=== PATIENT | female | born 2000 | race Caucasian/White ===

== ENCOUNTER 2020-10-13 18:29 | Inpatient (IN) | payer MEDICAID, OTHER ==
--- NOTE | 2020-10-13 18:50 | ED ---
General Adult HPI - General Chief complaint: Psychiatric Symptoms Stated complaint: Mental Health Time Seen by Provider: 10/13/20 18:37 Source: patient, EMS Mode of arrival: EMS Limitations: no limitations - History of Present Illness Initial comments: Patient presents the ED by ambulance for evaluation. Patient states that she has been having auditory and visual hallucinations ever since she broke up with her boyfriend about 15 days ago. Patient states that schizophrenia runs in her family, and she wishes to be evaluated for schizophrenia. Patient also states that she has "anger issues", and she states that she punched a wall with her right hand 4 days ago out of frustration. Patient claims that she had right hand x-rays taken at that time, he states that she was told that she broke a bone in her right hand. Patient denies any other trauma or injury. Patient admits to occasional marijuana use. Patient denies any other illicit drug use. Patient also admits to occasional alcohol use. Patient denies any alcohol or illicit drug use today. Patient denies suicidal or homicidal ideations. Patient denies fever or chills, headache, focal neuro deficit, chest pain, dyspnea, dizziness, abdominal pain, nausea or vomiting, or any other symptoms or complaints. - Related Data Home Medications Medication Instructions Recorded Confirmed Albuterol Sulfate [Proair Hfa] 1 - 2 puff INHALATION RT-Q6H PRN 10/13/20 10/13/20 Aripiprazole Lauroxil [Aristada] 882 mg IM Q42D 10/13/20 10/13/20 Naproxen 500 mg PO Q12H PRN 10/13/20 10/13/20 Phentermine HCl [Adipex-P] 37.5 mg PO DAILY 10/13/20 10/13/20 hydrOXYzine pamoate [Vistaril] 25 mg PO TID PRN 10/13/20 10/13/20 medroxyPROGESTERone [Depo-Provera] 150 mg IM Q90D 10/13/20 10/13/20 Allergies Allergy/AdvReac Type Severity Reaction Status Date / Time No Known Allergies Allergy Verified 10/13/20 19:25 Review of Systems ROS Statement: Those systems with pertinent positive or pertinent negative responses have been documented in the HPI. ROS Other: All systems not noted in ROS Statement are negative. Past Medical History Past Medical History: No Reported History Additional Past Medical History / Comment(s): developmentally delayed History of Any Multi-Drug Resistant Organisms: None Reported Additional Past Surgical History / Comment(s): thumb surgery Past Psychological History: Anxiety, Depression, PTSD Smoking Status: Current every day smoker Past Alcohol Use History: Daily Past Drug Use History: Marijuana General Exam Limitations: no limitations General appearance: alert, in no apparent distress Head exam: Present: atraumatic, normocephalic Eye exam: Present: normal appearance, PERRL, EOMI ENT exam: Present: mucous membranes moist Neck exam: Present: other (trachea is in midline). Absent: tenderness, meningismus Respiratory exam: Present: normal lung sounds bilaterally. Absent: respiratory distress, wheezes, rales, rhonchi, stridor Cardiovascular Exam: Present: regular rate, normal rhythm, normal heart sounds, other (normal radial pulses bilaterally) GI/Abdominal exam: Present: soft. Absent: distended, tenderness, guarding Extremities exam: Present: other (swelling, ecchymosis and tenderness is noted over right third, fourth and fifth MCP joints) Back exam: Absent: tenderness Neurological exam: Present: alert, oriented X3, CN II-XII intact. Absent: motor sensory deficit Psychiatric exam: Present: anxious Skin exam: Present: warm, dry, intact Course Vital Signs 10/13/20 18:42 Temperature 98.8 F Pulse Rate 120 H Respiratory 18 Rate Blood Pressure 114/80 O2 Sat by Pulse 99 Oximetry Procedures - Orthopedic Splinting/Casting Injury #1 Side: right Upper Extremity Injury Location: hand Upper Extremity Immobilizer: ulnar gutter, synthetic pre-padded splint Medical Decision Making - Medical Decision Making Patient was evaluated by EPS nurse in the ED. She states the patient will be voluntarily admitted to our psychiatric unit here. Patient has been alert and cooperative while in the ED. Patient is not suicidal or homicidal. A right hand ulnar gutter splint was placed in the ED myself secondary to the patient having a right fifth metacarpal fracture on x-ray. - Lab Data Lab Results 10/13/20 10/13/20 10/13/20 Range/Units 19:24 19:24 20:05 Urine HCG, Qual Not Detected (Not Detectd) Urine Opiates Screen Not Detected (NotDetected) Ur Oxycodone Screen Not Detected (NotDetected) Urine Methadone Screen Not Detected (NotDetected) Ur Propoxyphene Screen Not Detected (NotDetected) Ur Barbiturates Screen Not Detected (NotDetected) U Tricyclic Antidepress Not Detected (NotDetected) Ur Phencyclidine Scrn Not Detected (NotDetected) Ur Amphetamines Screen Not Detected (NotDetected) U Methamphetamines Scrn Not Detected (NotDetected) U Benzodiazepines Scrn Not Detected (NotDetected) Urine Cocaine Screen Not Detected (NotDetected) U Marijuana (THC) Screen Detected H (NotDetected) Coronavirus (PCR) Not Detected (Not Detectd) - Radiology Data Radiology results: report reviewed (right hand x-rays: nondisplaced acute fracture distal shaft fifth metacarpal with also probably pre-existing old healed fracture) Disposition Clinical Impression: Hallucinations, Marijuana abuse, Fracture of fifth metacarpal bone of right hand Disposition: ADMITTED IP TO THIS [facility] Condition: Stable Is patient prescribed a controlled substance at d/c from ED?: No Referrals: Kolton Vallejo MD [Primary Care Provider] - 1-2 days Time of Disposition: 20:32
[2020-10-13 19:51] LABS: Amphetamine Screen,Urine Not Detected (NotDetected); Barbiturate Screen,Urine Not Detected (NotDetected); Benzodiazepines Screen,Urine Not Detected (NotDetected); Cocaine Screen,Urine Not Detected (NotDetected); Methadone Screen, Urine Not Detected (NotDetected); Opiate Screen,Urine Not Detected (NotDetected); Oxycodone Screen, Urine Not Detected (NotDetected); Phencyclidine Screen,Urine Not Detected (NotDetected); Tricyclic Antidepressant,Urine Not Detected (NotDetected); Urn Cannabinoid Scrn Detected (NotDetected)
--- NOTE | 2020-10-13 20:03 | XR ---
EXAMINATION TYPE: XR hand complete RT DATE OF EXAM: 10/13/2020 COMPARISON: NONE HISTORY: Pain. Punched a wall. TECHNIQUE: 3 views FINDINGS: There is nondisplaced oblique fracture of the distal shaft of the fifth metacarpal. There i s also some deformity probably due to an old healed fracture. The fingers appear intact. IMPRESSION: Nondisplaced acute fracture distal shaft fifth metacarpal with also probably pre-existing old healed fracture.
[2020-10-13] MEDS ORDERED: MAG HYDROX/AL HYDROX/SIMETH 30 ML CUP PO PRN (22:07)
[2020-10-13] MEDS ORDERED: MAGNESIUM HYDROXIDE 2,400 MG/10 ML CUP PO PRN (22:07)
[2020-10-13] MEDS ORDERED: HALOPERIDOL LACTATE 5 MG/ML 1 ML VIAL IM PRN (22:08)
[2020-10-13] MEDS ORDERED: haloperidoL 1 MG TAB PO PRN (22:08)
[2020-10-13] MEDS ORDERED: ACETAMINOPHEN TAB 325 MG TAB PO PRN (22:30)
[2020-10-13] MEDS ORDERED: NAPROXEN 250 MG TAB PO PRN (22:30)
[2020-10-13] MEDS ORDERED: ALBUTEROL HFA INHALER INHALATION PRN (22:30)
[2020-10-14] MEDS: NON FORMULARY DRUG (Phentermine Hcl [Adipex-P] 37.5 MG Tablet) PO SCH (08:59)
[2020-10-14] MEDS ORDERED: FLUoxetine HCL 20 MG CAP PO STA (10:23)
--- NOTE | 2020-10-14 10:45 | P.HP ---
Psychiatric H&P - . H&P Date: 10/14/20 History & Physical: Allergies Allergy/AdvReac Type Severity Reaction Status Date / Time No Known Allergies Allergy Verified 10/14/20 00:23 Vital Signs Temp 98.5 F 10/13/20 22:20 Pulse 107 H 10/13/20 22:20 Resp 18 10/13/20 22:20 BP 114/70 10/13/20 22:20 Pulse Ox 98 10/13/20 22:20 Intake & Output 10/13/20 10/14/20 10/14/20 18:59 06:59 18:59 Weight 83.915 kg 83.915 kg Laboratory Last Values Urine HCG, Qual Not Detected (Not Detectd) 10/13/20 19:24 Urine Opiates Screen Not Detected (NotDetected) 10/13/20 19:24 Ur Oxycodone Screen Not Detected (NotDetected) 10/13/20 19:24 Urine Methadone Screen Not Detected (NotDetected) 10/13/20 19:24 Ur Propoxyphene Screen Not Detected (NotDetected) 10/13/20 19:24 Ur Barbiturates Screen Not Detected (NotDetected) 10/13/20 19:24 U Tricyclic Antidepress Not Detected (NotDetected) 10/13/20 19:24 Ur Phencyclidine Scrn Not Detected (NotDetected) 10/13/20 19:24 Ur Amphetamines Screen Not Detected (NotDetected) 10/13/20 19:24 U Methamphetamines Scrn Not Detected (NotDetected) 10/13/20 19:24 U Benzodiazepines Scrn Not Detected (NotDetected) 10/13/20 19:24 Urine Cocaine Screen Not Detected (NotDetected) 10/13/20 19:24 U Marijuana (THC) Screen Detected (NotDetected) H 10/13/20 19:24 Coronavirus (PCR) Not Detected (Not Detectd) 10/13/20 20:05 10/14/20 10:33 IDENTIFYING DATA: Patient is a single, unemployed, 20-year-old female who presented with auditory and visual hallucinations. HPI: Patient presented to the hospital on 10/13/2020 via ambulance for evaluation of auditory and visual hallucinations. The patient states that she wishes to be evaluated for schizophrenia. The patient reports that she has began experiencing bizarre and scary hallucinations that occur primarily between the hours of 3 AM and 6 AM. She states that this has been occurring for the last 16 days. She describes seeing shadows, hearing voices, as well as episodes where she is unable to move. This appears to align with her bedtime at 3 AM and her wake time of 6 AM. She reports other stressors that has been causing her significant distress. She states that she recently lost her mom this past April. Furthermore an ex-boyfriend also in 2019 and her father from cancer in 2019. The patient does express excessive amounts of guilt stating "I feel like it is my fault unless my mom, dad, and ex-boyfriend." She does identify periods of mood dysregulation and states that she hurt her wrist punching a wall 5 days ago. She reports elevated anger and mood swings. She also endorses anhedonia. She denies any suicidal or homicidal ideation, intention, and/or plan. She reports no prior attempts at suicide. Aside from these hallucinations, the patient is denying any paranoia. She does report that she feels like at times she is able to read other peoples minds. She denies any other delusional thought content. The patient does not endorse any flight of ideas, racing thoughts, or increased goal-directed behavior. The patient does report that she smokes one pack per day of cigarettes. She reports trying alcohol on occasion. She reports frequent marijuana use. She has previous experimented with mildly, DMT, and cocaine with the last use of these type of drugs in 2019. PAST PSYCHIATRIC HISTORY: Patient states that she has been treated for "anger." She has reported diagnoses of anxiety, depression, and PTSD. She is currently prescribed Abilify Aristada but is uncertain as to when she received her last dose. She is also prescribed Vistaril. She is receiving phentermine through her primary care provider for weight loss. She reports going to "[facility] for rehab" in 2019. She states she went because she was using DMT and charles at the time. Patient reports that she follows with [facility]. Patient denies any history of suicide attempts in the past. PMH: No reported medical history ALLERGIES: NO KNOWN DRUG ALLERGIES CHEMICAL DEPENDENCY HISTORY: 1 PPD tobacco. ETOH on occasion. She reports freq uent marijuana use. She has previous experimented with mildly, DMT, and cocaine with the last use of these type of drugs in 2019. FAMILY PSYCHIATRIC/SUBSTANCE USE HISTORY: The patient reports that her brother is diagnosed bipolar disorder and her sister's diagnosed with schizophrenia. SOCIAL HISTORY: Patient was born in [place], [place]. She is currently staying in [place], [place]. She is currently unemployed but reports that she is attempting to apply for SSI. She is single and has no children. She reports a 12th grade education. She states that she has a boyfriend in [place] was pl anning to move up to [place] and her grandmother. MENTAL STATUS EXAM: General Appearance: Patient appears to be stated age is alert, directable, and attempts to cooperate. Patient has a YO wrap and splint over her right wrist. Behavior: Patient is seated without any agitated behavior. Psychomotor activity appears normal. Speech: Patient's speech is fluent and nonpressured. Normal rate, tone, volume, and fluency. Mood/Affect: Patient reports their mood is scared, affect is euthymic with appropriate range. Suicidality/Homicidality: Patient denies having any homicidal ideation intent or plan. Denies any suicidal ideations intent or plan Perceptions: Patient denies any visual hallucinations and denies any auditory hallucinations Though content/process: There is no evidence of any delusional thought content and thought process is linear and goal-directed. Memory and concentration: AOX3, grossly intact for the purposes of this session. Can spell "WORLD" backwards Judgment and insight: poor STRENGTHS/WEAKNESSES: Strength is that patient is resilient and open with outpatient services. Weakness is that patient has poor judgment. INTELLECT: average to below average IMPRESSIONS: Major depressive disorder Bereavement Rule out narcolepsy/Sleep paralysis Cannabis Use Disorder Nicotine Dependence PLAN: -Patient is admitted under voluntary status to MHU for stabilization of ps ychiatric symptoms and safety. Patient signed adult voluntary form and medication consent and is placed in patient's chart. -Medications : Will start patient on Prozac 20 mg by mouth daily for depression/anxiety Will need to confirm when abilify aristada was last administered. -Haldol PRN for agitation/aggression -Patient was counselled on substance abuse and desired to cut back on use -Patient was informed of the risks, benefits and side effects of the medication and patient verbally consented to taking the medications. Patient signed med consent form and was placed in chart. -Internal Medicine consult to perform medical evaluation and physical. -NRT - nicotine patch -SW on board for discharge planning. Encourage patient to participate in groups to work on coping skills. 10/14/20 10:36 10/14/20 11:07
--- NOTE | 2020-10-14 23:40 | P.CONS ---
History of Present Illness - History of Present Illness This is a pleasant 20 years old female who was admitted to the mental health unit for signs and symptoms of major depressive disorder. Medical consult was requested for routine medical evaluation Patient is understandably, she denies any specific symptoms, no chest pain or dy spnea. No abdominal pain. No nausea vomiting. No change in urine or bowel habits. No fever. She smokes 1 pack per day, and no alcohol but she smokes marijuana, patient is counseled and agrees to quit Also patient was feeling angry and she punched a wall couple times nocturia to this admission and right hand x-ray showing nondisplaced acute fracture of the distal shaft of the fifth metacarpal bone with also probably preexistent old healed fracture, currently her hand is in partial and slab. I offered to do a serum test for the patient and she agrees Review of Systems CONSTITUTIONAL: No fever, no malaise, no fatigue. HEENT: No recent visual problems or hearing problems. Denied any sore throat. CARDIOVASCULAR: No orthopnea, PND, no palpitations, no syncope. PULMONARY: No shortness of breath, no cough, no hemoptysis. GASTROINTESTINAL: No diarrhea, no nausea, no vomiting, no abdominal pain. Normoactive bowel sounds. NEUROLOGICAL: No headaches, no weakness, no numbness. HEMATOLOGICAL: Denies any bleeding or petechiae. GENITOURINARY: Denies any burning micturition, frequency, or urgency. MUSCULOSKELETAL/RHEUMATOLOGICAL: Denies any joint pain, swelling, or any muscle pain. ENDOCRINE: Denies any polyuria or polydipsia. Past Medical History Past Medical History: Diabetes Mellitus Additional Past Medical History / Comment(s): developmentally delayed 3rd grade level, narcolepsy, right 5th metacarpal fx, History of Any Multi-Drug Resistant Organisms: None Reported Additional Past Surgical History / Comment(s): thumb surgery Past Anesthesia/Blood Transfusion Reactions: No Reported Reaction Past Psychological History: Anxiety, Depression, PTSD Additional Psychological History / Comment(s): anger management issues Smoking Status: Current every day smoker, Vaper Past Alcohol Use History: Occasional Additional Past Alcohol Use History / Comment(s): Patient reports only drinking occasionally, but when she does, drinks until she passes out. Past Drug Use History: Marijuana - Past Family History Mother Additional Family Medical History / Comment(s): Schizophrenia Medications and Allergies Home Medications Medication Instructions Recorded Confirmed Type Albuterol Sulfate [Proair Hfa] 1 - 2 puff INHALATION RT-Q6H PRN 10/13/20 10/14/20 History Aripiprazole Lauroxil [Aristada] 882 mg IM Q42D 10/13/20 10/14/20 History Naproxen 500 mg PO Q12H PRN 10/13/20 10/14/20 History Phentermine HCl [Adipex-P] 37.5 mg PO DAILY 10/13/20 10/14/20 History hydrOXYzine pamoate [Vistaril] 25 mg PO TID PRN 10/13/20 10/14/20 History medroxyPROGESTERone [Depo-Provera] 150 mg IM Q90D 10/13/20 10/14/20 History Allergies Allergy/AdvReac Type Severity Reaction Status Date / Time No Known Allergies Allergy Verified 10/14/20 00:23 Physical Exam Vitals: Vital Signs Temp Pulse Resp BP Pulse Ox 10/13/20 22:20 98.5 F 107 H 18 114/70 98 GENERAL: The patient is alert and oriented x3, not in any acute distress. Well developed, well nourished. HEENT: Pupils are round and equally reacting to light. EOMI. No scleral icterus. No conjunctival pallor. Normocephalic, atraumatic. No pharyngeal erythema. No thyromegaly. CARDIOVASCULAR: S1 and S2 present. No murmurs, rubs, or gallops. PULMONARY: Chest is clear to auscultation, no wheezing or crackles. ABDOMEN: Soft, nontender, nondistended, normoactive bowel sounds. No palpable organomegaly. MUSCULOSKELETAL: No joint swelling or deformity. -EXTREMITIES: No cyanosis, clubbing, or pedal edema. Right hand in partial slab NEUROLOGICAL: Gross neurological examination did not reveal any focal deficits. SKIN: No rashes. No petechiae Assessment and Plan Assessment: -Depression, and other signs symptoms, management as per psych primary team -Displaced acute fracture of the fifth metacarpal bone of the right hand, consult orthopedic team -Nicotine dependence and patient counseled to quit and she agrees -Substance abuse with cannabis -Obesity with BMI of 33.8 DVT prophylaxis: Patient is mobile and low risk We recommend patient to follow-up with her primary care doctor Yoni in one week and she was instructed with the same Thank you for consulting us please feel free to contact us for any further questions, we will see the patient on as needed basis
[2020-10-15] MEDS: NON FORMULARY DRUG (Phentermine Hcl [Adipex-P] 37.5 MG Tablet) PO SCH (08:41)
[2020-10-15] MEDS ORDERED: FLUoxetine HCL 20 MG CAP PO SCH (09:00)
[2020-10-15] MEDS: NICOTINE 14MG/24HR PATCH TRANSDERM SCH (09:20)
[2020-10-15] MEDS ORDERED: FLUoxetine HCL 20 MG CAP PO STA (09:53)
[2020-10-15] MEDS: hydrOXYzine pamoate 25 MG CAP PO PRN ×2 (11:59→18:20)
--- NOTE | 2020-10-15 12:00 | P.PN ---
Progress Note - Text Progress Note Date: 10/15/20 Interval History: Patient was seen attending group and was directable and agreeable to speak with newspaper writer in the office. Patient reports that she is feeling slightly better today. She reports that she was able to sleep well last night and was also sleeping throughout the day. The patient expresses that this is likely her catching up on all the sleep that she did not receive before. She does report that she had an episode of irritability but states that this was minor and was able to stop herself from being to Haldol. The patient is not reporting any suicidal or homicidal ideation, intention, and/or plan. She is not reporting any auditory or visualizations. She is denying any paranoia or delusions at this time. She has been adherent with her medications and is not reporting any significant side effects. Mental Status Exam: General Appearance: Patient appears to be stated age is alert, directable, and cooperative. Patient has an Sincere wrap and splint over her right wrist. Behavior: Patient is calmly seated without any agitated behavior. Eye contact is appropriate. Psychomotor activity is normal. Speech: Patient's speech is fluent and nonpressured. Each is with normal rate, tone, volume and fluency. Mood/Affect: Mood is improving mildly, affect is congruent and constricted. Suicidality/Homicidality: Patient denies having any suicidal or homicidal ideation intent or plan. Perceptions: Patient denies any visual hallucinations and denies any auditory hallucinations Though content/process: There is no evidence of any delusional thought content and thought process is linear and goal-directed. Memory and concentration: AOX3, grossly intact for the purposes of this session Judgment and insight: Improving mildly Assessment Major depressive disorder Bereavement Rule out narcolepsy/Sleep paralysis Cannabis Use Disorder Nicotine Dependence Plan: -Patient continues to meet criteria for inpatient psychiatric admission for symptom stabilization and safety. Patient has signed adult voluntary form and medication consent and was placed in patient's chart. -Medications: Increase Prozac to 40 mg by mouth daily for depression/anxiety The patient is to continue Abilify Aristada in the outpatient setting. -Haldol when necessary for agitation/aggression -NRT - nicotine patch -SW on board for discharge planning. Encouraged the patient to participate in milieu.
--- NOTE | 2020-10-15 15:22 | P.CNOR ---
History of Present Illness - [facility] Consult date: 10/15/20 Consult reason: fracture History of present illness: Patient is seen in the unit this afternoon in consultation for right hand pain and fracture. She states that she was angry at her sister 4 days ago when she punched a wall and injured her right hand. She was placed in a splint yesterday in the ED. She continues to have pain and swelling at the right hand. She denies numbness or elbow pain. Review of Systems All systems: negative Constitutional: Denies chills, Denies fever Eyes: denies blurred vision, denies pain Ears, nose, mouth and throat: Denies headache, Denies sore throat Cardiovascular: Denies chest pain, Denies shortness of breath Respiratory: Denies cough Gastrointestinal: Denies abdominal pain, Denies diarrhea, Denies nausea, Denies vomiting Genitourinary: Denies dysuria, Denies hematuria Musculoskeletal: Denies myalgias Integumentary: Denies pruritus, Denies rash Neurological: Denies numbness, Denies weakness Psychiatric: Denies anxiety, Denies depression Endocrine: Denies fatigue, Denies weight change Past Medical History Past Medical History: Diabetes Mellitus Additional Past Medical History / Comment(s): developmentally delayed 3rd grade level, narcolepsy, right 5th metacarpal fx, History of Any Multi-Drug Resistant Organisms: None Reported Additional Past Surgical History / Comment(s): thumb surgery Past Anesthesia/Blood Transfusion Reactions: No Reported Reaction Past Psychological History: Anxiety, Depression, PTSD Additional Psychological History / Comment(s): anger management issues Smoking Status: Current every day smoker, Vaper Past Alcohol Use History: Occasional Additional Past Alcohol Use History / Comment(s): Patient reports only drinking occasionally, but when she does, drinks until she passes out. Past Drug Use History: Marijuana - Past Family History Mother Additional Family Medical History / Comment(s): Schizophrenia Medications and Allergies Home Medications Medication Instructions Recorded Confirmed Type Albuterol Sulfate [Proair Hfa] 1 - 2 puff INHALATION RT-Q6H PRN 10/13/20 10/14/20 History Aripiprazole Lauroxil [Aristada] 882 mg IM Q42D 10/13/20 10/14/20 History Phentermine HCl [Adipex-P] 37.5 mg PO DAILY 10/13/20 10/14/20 History RX: Naproxen 500 mg PO Q12H PRN 10/13/20 10/14/20 History hydrOXYzine pamoate [Vistaril] 25 mg PO TID PRN 10/13/20 10/14/20 History medroxyPROGESTERone [Depo-Provera] 150 mg IM Q90D 10/13/20 10/14/20 History Allergies Allergy/AdvReac Type Severity Reaction Status Date / Time No Known Allergies Allergy Verified 10/14/20 00:23 Physical Examination On exam, skin is intact. Tender over the fifth metacarpal neck to palpation. mild swelling and ecchymosis in this area. No angular or rotational deformity. Normal flexion cascade. There is an intact EPL, FPL, extensor indicis, hand intrinsics and the FDP to the small finger. Intact radial, median and ulnar nerve sensations as well as 2+ radial pulse and brisk capillary refill distally. minimally scissoring Results xrays 10/14/20 of right hand show minimally displaced 5th metacarpal head fracture - Diagnostic results Wrist/Hand x-ray: report reviewed, image reviewed Assessment and Plan (1) Fracture of fifth metacarpal bone of right hand Narrative/Plan: We will request a boxer's fracture brace be obtained for her to wear. I advised to ice and elevate and restrictions. Pain meds and NSAIDs per primary team. She may follow up as an outpatient in one week. Current Visit: Yes Status: Acute Priority: Medium Code(s): S62.306A - UNSP FRACTURE OF FIFTH METACARPAL BONE, RIGHT HAND, INIT SNOMED Code(s): 304477804 Time with Patient: Less than 30
[2020-10-15 18:48] LABS: Appearance,Urine Cloudy (Clear); Bacteria,Urine Rare /hpf; Bilirubin,Urine Negative (Negative); Blood,Urine Negative (Negative); Color,Urine Yellow; Glucose,Urine (UA) Negative (Negative); Hyaline Casts,Urine 3 /lpf (0-2); Ketones,Urine Negative (Negative); Leukocyte Esterase,Urine Large (Negative); Mucus,Urine Occasional /hpf; Nitrite,Urine Negative (Negative); PH, Urine 6.5 (5.0-8.0); Protein,Urine Trace (Negative); RBC,Urine 5 /hpf (0-5); Specific Gravity,Urine 1.022 (1.001-1.035); Squamous Epithelial Cell,Urine 1 /hpf (0-4); Urobilinogen,Urine <2.0 mg/dL (<2.0); WBC,Urine 106 /hpf (0-5)
[2020-10-16 04:43] VITALS: BP 120/65; PULSE 106; RESP 18
[2020-10-16] MEDS: hydrOXYzine pamoate 25 MG CAP PO PRN (04:47)
[2020-10-16] MEDS: NICOTINE 14MG/24HR PATCH TRANSDERM SCH (07:57)
[2020-10-16] MEDS: NON FORMULARY DRUG (Phentermine Hcl [Adipex-P] 37.5 MG Tablet) PO SCH (08:44)
[2020-10-16] MEDS ORDERED: FLUoxetine HCL 20 MG CAP PO SCH (09:00)
--- NOTE | 2020-10-16 10:13 | P.DS ---
Providers Date of admission: 10/13/20 21:55 Expected date of discharge: 10/16/20 Attending physician: Keny Eid MD Consults: 10/13/20 22:07 Consult Physician Routine Consulting Provider: Amador Lovell Consult Reason/Comments: H&P and medical Do you want consulting provider notified?: Yes 10/14/20 20:03 Consult Physician Urgent Consulting Provider: Hector Genao Consult Reason/Comments: hand fracture Do you want consulting provider notified?: Yes Primary care physician: Kolton Vallejo - Discharge Diagnosis(es) (1) Major depressive disorder Current Visit: Yes Status: Acute Priority: High (2) Bereavement Current Visit: Yes Status: Acute Priority: High (3) Nicotine dependence Current Visit: Yes Status: Chronic Priority: Medium (4) Marijuana abuse Current Visit: Yes Status: Chronic Priority: Medium Hospital Course: Admission HPI: Patient is a single, unemployed, 20-year-old female who presented with auditory and visual hallucinations. Patient presented to the hospital on 10/13/2020 via ambulance for evaluation of auditory and visual hallucinations. The patient states that she wishes to be evaluated for schizophrenia. The patient reports that she has began experiencing bizarre and scary hallucinations that occur primarily between the hours of 3 AM and 6 AM. She states that this has been occurring for the last 16 days. She describes seeing shadows, hearing voices, as well as episodes where she is unable to move. This appears to align with her bedtime at 3 AM and her wake time of 6 AM. She reports other stressors that has been causing her significant distress. She states that she recently lost her mom this past April. Furthermore an ex-boyfriend also in 2019 and her father from cancer in 2018. The patient does express excessive amounts of guilt stating "I feel like it is my fault unless my mom, dad, and ex-boyfriend." She does identify periods of mood dysregulation and states that she hurt her wrist punching a wall 5 days ago. She reports elevated anger and mood swings. She also endorses anhedonia. She denies any suicidal or homicidal ideation, intention, and/or plan. She reports no prior attempts at suicide. Aside from these hallucinations, the patient is denying any paranoia. She does report that she feels like at times she is able to read other peoples minds. She denies any other delusional thought content. The patient does not endorse any flight of ideas, racing thoughts, or increased goal-directed behavior. The patient does report that she smokes one pack per day of cigarettes. She reports trying alcohol on occasion. She reports frequent marijuana use. She has previous experimented with mildly, DMT, and cocaine with the last use of these type of drugs in 2019. Hospital course: Upon admission to the unit patient was initially presenting is frightened and worried. Patient was however directable and agreeable to commence treatment. After obtaining the patient's history, it is likely that the patient was experiencing sleep paralysis that she endorsed hypnagogic and hypnopompic hallucinations. The patient was started on Prozac to address depression/anxiety that she has been experiencing. The patient was also evaluated by the medical team and orthopedics due to a broken metacarpal bone which she broke punching a wall prior to this mission. Over the course of the hospitalization, the patient gradually improved in terms of her sleep, mood, and hallucinations. The patient attended group with high participation engaged in milieu activities. On the day of discharge, the patient is not reporting any suicidal or homicidal ideation, intention, and/or plan. She is not reporting any access to firearms or weapons. She is not reporting any auditory or visual hallucinations. She is not reporting any paranoia or other delusions. The patient does have a significant history of substance abuse including experimentation with multiple drugs in the past, and current marijuana and tobacco use however was counseled on abstaining from all these substances. The patient was also counseled on her medications and need for regular compliance and was encouraged to follow-up with her outpatient appointments for mental health and for primary care. Prior to discharge, a family meeting will be arranged by hospice social worker to answer any questions. Mental status exam: General Appearance: Patient appears to be stated age is alert, pleasant, and cooperative. Patient is in no acute distress and has fair hygiene and grooming Behavior: Patient is calmly seated without any agitated behavior. Psychomotor activity appears normal. Speech: Patient's speech is fluent and nonpressured. The patient's speech is spontaneous, with normal rate, tone, volume, and fluency. Mood/Affect: Patient reports their mood is "much better", affect is congruent and euthymic to bright. Suicidality/Homicidality: Patient denies having any suicidal or homicidal ideation intent or plan. Perceptions: Patient denies any auditory or visual hallucinations. Though content/process: There is no evidence of any delusional thought content and thought process is linear and goal-directed. [ Memory and concentration: AOX3, grossly intact for the purposes of this session. Can spell "WORLD" backwards correctly. Judgment and insight: Improved Impression: Major depressive disorder Bereavement Rule out narcolepsy/Sleep paralysis Cannabis Use Disorder Nicotine Dependence Plan: -Continue with discharge today as patient has improved and stabilized psychiatrically and is not currently an imminent threat to himself and/or others. Patient will remain at chronically elevated risk for harm to self and/or others due to her poor coping skills and substance use -Continue medications: The patient will be discharged with Prozac 40 mg by mouth daily and nicotine replacement therapy patches -Patient was counseled on the need for medication compliance and appropriate follow-up at mental health and also primary care for medical issues. Patient verbalized understanding and agreed. -Social work to arrange for and conduct family meeting to ensure safety upon discharge and answer any questions/concerns. Social work also to arrange for patients follow up appointments for psychiatric care along with follow up with primary care provider. -Patient counseled on abstaining from recreational drugs and marijuana and alcohol. Was informed/educated on the adverse effects on their physical and mental health. Patient verbally agreed and understood. -Patient was instructed to return to the hospital or seek immediate medical care if their psychiatric or medical symptoms do worsen or reoccur. -Psychoeducation and supportive therapy provided to patient. Risks and benefits of pharmacological treatment versus the risks and benefits of nontreatment weight and discussed. Informed consent discussion held. Common side effects of psychotropics discussed such as, but not limited to headache, GI disturbance, sexual dysfunction, movement disorders, sedation, and orthostatic hypotension. Life threatening and blackbox warnings of prescribed medications also discussed. Potential risks of operating a vehicle or heavy machinery discussed with patient at length. Advised on importance of compliance and a reliable and responsible manner. Patient advised to review FDA consumer labeling of all medications prior to taking. Patient verbalized understanding of potential risks, and agrees with current treatment plan. Patient advised to medically contact physician/emergency personnel if any acute changes in condition occur. Vital Signs Temp 97.4 F L 10/16/20 04:42 Pulse 106 H 10/16/20 04:42 Resp 18 10/16/20 04:42 BP 120/65 10/16/20 04:42 Pulse Ox 98 10/13/20 22:20 Laboratory Results HCG, Qual Not Detected 10/15/20 06:36 Urine Color Yellow 10/15/20 Unknown Urine Appearance Cloudy (Clear) H 10/15/20 Unknown Urine pH 6.5 (5.0-8.0) 10/15/20 Unknown Ur Specific [place] 1.022 (1.001-1.035) 10/15/20 Unknown Urine Protein Trace (Negative) H 10/15/20 Unknown Urine Glucose (UA) Negative (Negative) 10/15/20 Unknown Urine Ketones Negative (Negative) 10/15/20 Unknown Urine Blood Negative (Negative) 10/15/20 Unknown Urine Nitrite Negative (Negative) 10/15/20 Unknown Urine Bilirubin Negative (Negative) 10/15/20 Unknown Urine Urobilinogen <2.0 mg/dL (<2.0) 10/15/20 Unknown Ur Leukocyte Esterase Large (Negative) H 10/15/20 Unknown Urine RBC 5 /hpf (0-5) 10/15/20 Unknown Urine WBC 106 /hpf (0-5) H 10/15/20 Unknown Ur Squamous Epith Cells 1 /hpf (0-4) 10/15/20 Unknown Urine Bacteria Rare /hpf (None) H 10/15/20 Unknown Hyaline Casts 3 /lpf (0-2) H 10/15/20 Unknown Urine Mucus Occasional /hpf (None) H 10/15/20 Unknown Urine HCG, Qual Not Detected (Not Detectd) 10/13/20 19:24 Urine Opiates Screen Not Detected (NotDetected) 10/13/20 19:24 Ur Oxycodone Screen Not Detected (NotDetected) 10/13/20 19:24 Urine Methadone Screen Not Detected (NotDetected) 10/13/20 19:24 Ur Propoxyphene Screen Not Detected (NotDetected) 10/13/20 19:24 Ur Barbiturates Screen Not Detected (NotDetected) 10/13/20 19:24 U Tricyclic Antidepress Not Detected (NotDetected) 10/13/20 19:24 Ur Phencyclidine Scrn Not Detected (NotDetected) 10/13/20 19:24 Ur Amphetamines Screen Not Detected (NotDetected) 10/13/20 19:24 U Methamphetamines Scrn Not Detected (NotDetected) 10/13/20 19:24 U Benzodiazepines Scrn Not Detected (NotDetected) 10/13/20 19:24 Urine Cocaine Screen Not Detected (NotDetected) 10/13/20 19:24 U Marijuana (THC) Screen Detected (NotDetected) H 10/13/20 19:24 Coronavirus (PCR) Not Detected (Not Detectd) 10/13/20 20:05 Allergies Allergy/AdvReac Type Severity Reaction Status Date / Time No Known Allergies Allergy Verified 10/14/20 00:23 Patient Condition at Discharge: Stable Plan - Discharge Summary Discharge Rx Participant: No New Discharge Prescriptions: New Nicotine 14Mg/24Hr Patch [Habitrol] 1 patch TRANSDERM DAILY 30 Days patch FLUoxetine HCL [PROzac] 40 mg PO DAILY 30 Days cap Continue medroxyPROGESTERone [Depo-Provera] 150 mg IM Q90D Aripiprazole Lauroxil [Aristada] 882 mg IM Q42D Phentermine HCl [Adipex-P] 37.5 mg PO DAILY Discontinued Naproxen 500 mg PO Q12H PRN PRN Reason: Pain Albuterol Sulfate [Proair Hfa] 1 - 2 puff INHALATION RT-Q6H PRN PRN Reason: Shortness Of Breath hydrOXYzine pamoate [Vistaril] 25 mg PO TID PRN PRN Reason: Anxiety Discharge Medication List Aripiprazole Lauroxil [Aristada] 882 mg IM Q42D 10/13/20 [History] Phentermine HCl [Adipex-P] 37.5 mg PO DAILY 10/13/20 [History] medroxyPROGESTERone [Depo-Provera] 150 mg IM Q90D 10/13/20 [History] FLUoxetine HCL [PROzac] 40 mg PO DAILY 30 Days cap 10/16/20 [Rx] Nicotine 14Mg/24Hr Patch [Habitrol] 1 patch TRANSDERM DAILY 30 Days patch 10/16/20 [Rx] Follow up Appointment(s)/Referral(s): Kolton Vallejo MD [Primary Care Provider] - 1-2 days Watkins,Derek J, PAC [PHYSICIAN TRANSITION TEACHER] - 1 Week Activity/Diet/Wound Care/Special Instructions: Wear fracture brace ice and elevate F/U in office in one week Discharge Disposition: HOME SELF-CARE
[2020-10-16 13:44] VITALS: TEMP 97.1
== END 2020-10-16 14:50 | disposition home or self-care (01) | DRG 881 ==
LOC: EC 18:29 → 3MHU 21:55
PROVIDERS: ADMIT Psychiatry & Neurology Psychiatry; ATTEND Psychiatry & Neurology Psychiatry
DX: F32.9 Major depressive disorder, single episode, unspecified (principal); R44.0 Auditory hallucinations; E11.9 Type 2 diabetes mellitus without complications; G83.9 Paralytic syndrome, unspecified; Z20.822 Contact with and (suspected) exposure to COVID-19; F12.10 Cannabis abuse, uncomplicated; F17.210 Nicotine dependence, cigarettes, uncomplicated; S62.326A Displaced fracture of shaft of fifth metacarpal bone, right hand, initial encounter for closed fracture; R44.1 Visual hallucinations; R62.50 Unspecified lack of expected normal physiological development in childhood; F43.10 Post-traumatic stress disorder, unspecified; F41.9 Anxiety disorder, unspecified; G47.419 Narcolepsy without cataplexy; E66.9 Obesity, unspecified; W22.01XA Walked into wall, initial encounter; Z68.33 Body mass index [BMI] 33.0-33.9, adult; Z79.3 Long term (current) use of hormonal contraceptives; Z79.899 Other long term (current) drug therapy; Z56.0 Unemployment, unspecified; Z63.4 Disappearance and death of family member; Z71.6 Tobacco abuse counseling; Z87.81 Personal history of (healed) traumatic fracture; Z81.8 Family history of other mental and behavioral disorders
CPT/HCPCS: 29125; 80306; 81001; 81025; 82075; 84703; 87635; 99285

== ENCOUNTER 2023-09-06 21:44 | Inpatient (IN) | payer MEDICARE, OTHER ==
[2023-09-06 23:35] LABS: Cocaine Screen,Urine Not Detected (NotDetected); Phencyclidine Screen,Urine Not Detected (NotDetected); Urn Cannabinoid Scrn Detected (NotDetected)
[2023-09-06 23:36] LABS: Amphetamine Screen,Urine Not Detected (NotDetected); Barbiturate Screen,Urine Not Detected (NotDetected); Benzodiazepines Screen,Urine Not Detected (NotDetected); Methadone Screen, Urine Not Detected (NotDetected); Opiate Screen,Urine Not Detected (NotDetected); Oxycodone Screen, Urine Not Detected (NotDetected); Tricyclic Antidepressant,Urine Not Detected (NotDetected)
[2023-09-07] MEDS ORDERED: LORazepam 1 MG TAB PO PRN (01:49)
[2023-09-07] MEDS ORDERED: MAG HYDROX/AL HYDROX/SIMETH 30 ML CUP PO PRN (01:49)
[2023-09-07] MEDS ORDERED: diphenhydrAMINE 25 MG CAP PO PRN (01:49)
[2023-09-07] MEDS ORDERED: MAGNESIUM HYDROXIDE 2,400 MG/30 ML CUP PO PRN (01:49)
[2023-09-07] MEDS ORDERED: HALOPERIDOL LACTATE 5 MG/ML 1 ML VIAL IM PRN (01:49)
[2023-09-07] MEDS: IBUPROFEN 600 MG TAB PO PRN ×2 (02:41→15:00)
[2023-09-07] MEDS: LORazepam 1 MG TAB PO PRN ×2 (03:08→15:00)
--- NOTE | 2023-09-07 04:42 | P.PN ---
Progress Note - Text Progress Note Date: 09/07/23 notified of new consult, patient heavily medicated at this time
[2023-09-07 04:55] LABS: Appearance,Urine Clear (Clear); Bilirubin,Urine Negative (Negative); Blood,Urine Negative (Negative); Color,Urine Colorless; Glucose,Urine (UA) Negative (Negative); Ketones,Urine Negative (Negative); Leukocyte Esterase,Urine Negative (Negative); Nitrite,Urine Negative (Negative); PH, Urine 6.5 (5.0-8.0); Protein,Urine Negative (Negative); Specific Gravity,Urine 1.014 (1.001-1.035); Urobilinogen,Urine <2.0 mg/dL (<2.0)
[2023-09-07] MEDS: NICOTINE 14MG/24HR PATCH TRANSDERM SCH ×2 (09:28→20:39)
[2023-09-07] MEDS ORDERED: ALBUTEROL HFA INHALER INHALATION PRN (12:10)
[2023-09-07] MEDS ORDERED: traZODone HCL 50 MG TAB PO PRN (12:12)
[2023-09-07] MEDS: SERTRALINE 50 MG TAB PO SCH (13:04)
[2023-09-07 13:16] LABS: C. trachomatis,PCR Negative (Negative)
--- NOTE | 2023-09-07 13:20 | P.HP ---
Psychiatric H&P - . H&P Date: 09/07/23 History & Physical: Allergies Allergy/AdvReac Type Severity Reaction Status Date / Time No Known Allergies Allergy Verified 09/07/23 01:53 Vital Signs Temp 98.2 F 09/07/23 02:30 Pulse 101 H 09/07/23 02:30 Resp 18 09/07/23 02:30 BP 130/66 09/07/23 02:30 Pulse Ox 99 09/07/23 02:30 FiO2 Intake & Output 09/06/23 09/07/23 09/07/23 18:59 06:59 18:59 Weight 82.7 kg Laboratory Last Values Urine Color Colorless 09/06/23 23:05 Urine Appearance Clear (Clear) 09/06/23 23:05 Urine pH 6.5 (5.0-8.0) 09/06/23 23:05 Ur Specific [place] 1.014 (1.001-1.035) 09/06/23 23:05 Urine Protein Negative (Negative) 09/06/23 23:05 Urine Glucose (UA) Negative (Negative) 09/06/23 23:05 Urine Ketones Negative (Negative) 09/06/23 23:05 Urine Blood Negative (Negative) 09/06/23 23:05 Urine Nitrite Negative (Negative) 09/06/23 23:05 Urine Bilirubin Negative (Negative) 09/06/23 23:05 Urine Urobilinogen <2.0 mg/dL (<2.0) 09/06/23 23:05 Ur Leukocyte Esterase Negative (Negative) 09/06/23 23:05 Urine HCG, Qual Not Detected (Not Detectd) 09/06/23 22:54 Urine Opiates Screen Not Detected (NotDetected) 09/06/23 22:54 Ur Oxycodone Screen Not Detected (NotDetected) 09/06/23 22:54 Urine Methadone Screen Not Detected (NotDetected) 09/06/23 22:54 Ur Barbiturates Screen Not Detected (NotDetected) 09/06/23 22:54 U Tricyclic Antidepress Not Detected (NotDetected) 09/06/23 22:54 Ur Phencyclidine Scrn Not Detected (NotDetected) 09/06/23 22:54 Ur Amphetamines Screen Not Detected (NotDetected) 09/06/23 22:54 U Methamphetamines Scrn Not Detected (NotDetected) 09/06/23 22:54 U Benzodiazepines Scrn Not Detected (NotDetected) 09/06/23 22:54 Urine Cocaine Screen Not Detected (NotDetected) 09/06/23 22:54 U Marijuana (THC) Screen Detected (NotDetected) H 09/06/23 22:54 SARS-CoV-2 (PCR) Not Detected (Not Detectd) 09/07/23 00:16 09/07/23 08:44 IDENTIFYING DATA: Patient is a 23-year-old female, lives in a trailer with grandmother and uncle. Has 1 child, 9 months old, that she does not have custody of. Patient is single HPI: Patient presented to the hospital ED on 09/06, as per EPS note ".pt resting in room. pt states, "I feel like killing myself, but I'm trying so hard not to think that." pt reports SI but denies a plan at this time. pt states, "I'm stressed. I'm struggling. I can't handle it anymore. I can figure out something." pt reports that she has been "dealing with" CPS since her son was taken in February 2023. pt states that she has been struggling with getting custody of her son again. pt reports that "my ex-baby daddy's situation got my son taken." pt reports recent domestic violence allegations and states, "my ex-baby daddy's ex called police and CPS on me and acted like she knew everything that was happening but she didn't." pt sates, "I know that single moms have gotten their lives together and gotten their kids back, but they had help from their parents. I don't have that; I don't have any help. I'm the black sheep of the family." pt reports auditory and visual hallucinations, but then states that "spirits come to me and tell me how they feel." pt then denies that these are h allucinations and insists that they are spirits. pt cooperative with assessment." Upon todays assessment, she states that she is overwhelmed, due to a court hearing, that she had no time that she had to prepare for. Stated she did not know about the hearing. It is a domestic violence case from [employer]PS, because of a fight between her and her sons father. Son was placed with his fathers cousin. Patient states that the cousin is trying to steal her child. Feels like she is a "piece of shit mother". States that CPS is making her feel the way she is feeling. States she is , and that it is illegal for them to take her child. States her mood is angry and depressed, anxious, and not herself. States she's felt this way for about 4 months. Patient denies any suicidal or homicidal ideations intent or plan. At this time patient endorses auditory and visual hallucinations, Stating she sees people that is not there, and hearing voices that are not there. Her mother, who is , is disappointed in her because she does not have her child, that her mother's spirit comes to her. Patient states her appetite is non existent. States her home is possessed. States "this is all a set up, and it's fake" Stating the person who has her child is trying to steal him. And she thinks the aunt works for CPS and is trying to set her up to have her child. Patient is having flight of ideas and racing thoughts. Patient admits to using marijuana and nicotine PAST PSYCHIATRIC HISTORY: Patient states that she has been treated for "anger." She has reported diagnoses of anxiety, depression, and PTSD. Patient has been off medication since 2020. She reports going to "[facility] for rehab" in 2019. She states she went because she was using DMT and charles at the time. Patient states she has multiple attempts of suicide attempts in the past. Patient was last admitted into this unit in September 2020 PMH: As per ED note ALLERGIES: as per EMR CHEMICAL DEPENDENCY HISTORY: as per HPI FAMILY PSYCHIATRIC/SUBSTANCE USE HISTORY: denies SOCIAL HISTORY: Patient was born in [place], [place]. She is currently staying in [place], [place]. 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 She reports a 12th grade education. Lives with grandmother and uncle in a house, has 1 child that she does not have custody of. .Denies legal history MENTAL STATUS EXAM: General Appearance: Patient appears to be heavily tattooed. Short hair stated age is alert, directable, and attempts to cooperate. Multiple bruises on right arm. Patient appears to have poor hygiene and grooming. Dressed in a hospital gown, wrapped in a blanket Behavior: Patient is seated and appears to have agitated behavior. Patient is loud in tone. irritable Speech: Patient's speech is fluent and nonpressured. Loud tone, irritable. Mood/Affect: Patient reports their mood is depressed and angry, affect is congruent and constricted. Suicidality/Homicidality: Patient denies having any homicidal ideation intent o r plan. Denies any suicidal ideations intent or plan Perceptions: Patient endorses visual hallucinations and auditory hallucinations Though content/process: There is evidence of delusional thought content, seeing her mother and father's spirit, thinking her home is possessed. Memory and concentration: AOX3, grossly intact for the purposes of this session. Can spell "WORLD" backwards Judgment and insight: poor STRENGTHS/WEAKNESSES: strength is that patient is resilient. Weakness is that patient has poor judgment and is impulsive INTELLECT: average IMPRESSIONS: bipolar disorder, current episode depressed with psychotic features Adjustment disorder with mixed emotional features PTSD Cannabis use disorder Nicotine dependance PLAN: -Patient is admitted under voluntary status to [facility]HU for stabilization of psychiatric symptoms and safety. Patient has signed adult voluntary form and medication consent and is placed in patient's chart. -Medications : Will start patient on Invega 3mg qhs for psychosis/mood stabilization, Zoloft 50mg qd for mood/anxiety, trazadone 50mg qhs prn for sleep/anxiety -Ativan and Haldol PRN for agitation/aggression -Patient was counselled on substance abuse and desired to cut back on use -Patient was informed of the risks, benefits and side effects of the medication and patient verbally consented to taking the medications. Patient signed med consent form and was placed in chart. -Internal Medicine consult to perform medical evaluation and physical. -NRT - nicotine patch -SW on board for discharge planning. Encourage patient to participate in groups to work on coping skills. 09/07/23 11:54 09/07/23 13:19
[2023-09-07 13:29] LABS: N. gonorrhoeae,PCR Negative (Negative)
[2023-09-07] MEDS: haloperidoL 5 MG TAB PO PRN (18:30)
[2023-09-07] MEDS: PALIPERIDONE 3 MG TAB.ER.24 PO SCH (20:30)
--- NOTE | 2023-09-08 03:06 | P.PN ---
Progress Note - Text Progress Note Date: 09/08/23 uncontrolled anger, heavily medicated , inappropriate for evaluation at this time
[2023-09-08] MEDS: NICOTINE 14MG/24HR PATCH TRANSDERM SCH ×2 (07:59→11:49)
[2023-09-08] MEDS: SERTRALINE 50 MG TAB PO SCH (07:59)
[2023-09-08 09:46] LABS: Basophils # (A) 0.1 k/uL (0-0.2); Basophils % (A) 1 %; Eosinophils # (A) 0.4 k/uL (0-0.7); Eosinophils % (A) 5 %; HCT 40.6 % (34.0-46.0); HGB 13.3 gm/dL (11.4-16.0); Lymphocytes # (A) 2.9 k/uL (1.0-4.8); Lymphocytes % (A) 40 %; MCH 30.2 pg (25.0-35.0); MCHC 32.8 g/dL (31.0-37.0); MCV 91.8 fL (80.0-100.0); Mean Platelet Volume 8.4; Monocytes # (A) 0.4 k/uL (0-1.0); Monocytes % (A) 5 %; Neutrophils # (A) 3.4 k/uL (1.3-7.7); Neutrophils % (A) 47 %; Platelet Count 230 k/uL (150-450); RBC 4.43 m/uL (3.80-5.40); RDW 12.7 % (11.5-15.5); WBC 7.2 k/uL (3.8-10.6)
[2023-09-08 10:23] LABS: ALT 14 U/L (4-34); AST 21 U/L (14-36); African American GFR (CKD) >90 (>60 ml/min/1.73 sqM); Albumin 4.2 g/dL (3.5-5.0); Alkaline Phosphatase 53 U/L (38-126); Anion Gap 12 mmol/L; Bilirubin, Delta 0.4 mg/dL (0.0-0.2); Bilirubin,Unconjugated 0.3 mg/dL (0.0-1.1); Blood Urea Nitrogen 20 mg/dL (7-17); Calcium 9.7 mg/dL (8.4-10.2); Carbon Dioxide 21 mmol/L (22-30); Chloride 108 mmol/L (98-107); Glucose 75 mg/dL (74-99); Non-African American GFR(CKD) >90 (>60 ml/min/1.73 sqM); Potassium 4.8 mmol/L (3.5-5.1); Sodium 141 mmol/L (137-145); Total Bilirubin 0.7 mg/dL (0.2-1.3); Total Protein 7.2 g/dL (6.3-8.2)
--- NOTE | 2023-09-08 11:41 | P.PN ---
Progress Note - Text Progress Note Date: 09/08/23 Interval History: Patient was seen in her room and was directable and agreeable to speak with keno writer at the bedside. Patient states yesterday was pretty rough, and that she was quite angry all day, today, patient appears to be less angry and more cooperative. States she slept well, however, is not having a good appetite, due to not liking the food. She did get up for breakfast this morning, and filled out her menu, so she will get her own choices for lunch, dinner and breakfast. Patient is complaining of back pain, will have medical follow up. Patient told keno writer that she would like a medication to help her be more awake during the day, because she is sleeping quite a bit. she claims that she has a diagnosis of narcolepsy. Supervisor Cereal talked to patient about modafinil, patient agreeable to try this medication. At this time patient denies any suicidal or homical ideations, intent or plan. Patient denies any auditory, visual hallucinations and denies any paranoia or delusions. Patient denies any side effects from the medications and has been compliant with meds. MENTAL STATUS EXAM: General Appearance: Patient appears to be heavily tattooed. Short hair stated age is alert, directable, and attempts to cooperate. Multiple bruises on right arm. Patient appears to have poor hygiene and grooming. Dressed in a hospital gown, wrapped in a blanket Behavior: Patient is laying in bed and appears to be much more cooperative today Speech: Patient's speech is fluent and nonpressured. Mood/Affect: Patient reports their mood is "ok", affect is congruent and constricted. Suicidality/Homicidality: Patient denies having any homicidal ideation intent or plan. Denies any suicidal ideations intent or plan Perceptions: Patient does not endorse visual hallucinations and auditory hallucinations Though content/process: There is no evidence of delusional thought content Memory and concentration: AOX3, grossly intact for the purposes of this session. Judgment and insight: poor, mildly improving IMPRESSIONS: bipolar disorder, current episode depressed with psychotic features Adjustment disorder with mixed emotional features PTSD Cannabis use disorder Nicotine dependance PLAN: -Patient is admitted under voluntary status to [facility] for stabilization of psychiatric symptoms and safety. Patient has signed adult voluntary form and medication consent and is placed in patient's chart. -Medications :Invega 3mg qhs for psychosis/mood stabilization, Zoloft 50mg qd for mood/anxiety, increase trazadone 100mg qhs for sleep/anxiety, add modafinil 200 mg qam for narcolepsy -Ativan and Haldol PRN for agitation/aggression -NRT - nicotine patch -SW on board for discharge planning. Encourage patient to participate in groups to work on coping skills.
[2023-09-08] MEDS: LORazepam 1 MG TAB PO PRN (11:55)
[2023-09-08] MEDS: IBUPROFEN 600 MG TAB PO PRN (11:56)
[2023-09-08] MEDS: modafiniL 100 MG TAB PO SCH (13:08)
[2023-09-08 15:01] LABS: Chol/HDL Ratio 4.68 Ratio; LDL Cholesterol,Calculated 112.4 mg/dL (0.0-131.0)
--- NOTE | 2023-09-08 17:44 | P.HPMEDMHU ---
History of Present Illness H&P Date: 09/08/23 Patient is a 23-year-old female with history of diabetes, was previously treated with metformin 4 years ago, possible seizures, possible WPW EKG pattern, depression, psychotic disorder, bipolar disorder, PTSD currently admitted to behavioral health unit. [facility] physicians has been consulted for medical management. Patient denies any chest pain, shortness of breath. Denies any robert wel complaints or urinary complaints. Pertinent positives and negatives as discussed in HPI, a complete review of systems was performed and all other systems are negative. Patient seen and examined at bedside. Vital signs reviewed General: nontoxic, no distress, appears at stated age Derm: warm, dry Head: atraumatic, normocephalic, symmetric Eyes: EOMI, no lid lag, anicteric sclera, pupils equal round reactive to light ENT: Nose and ears atraumatic Neck: No thyromegaly, supple Mouth: no lip lesion, mucus membranes moist Cardiovascular: S1S2 reg, no murmur, no edema Lungs: clear to auscultation bilateral, no rhonchi, no rales, no wheeze, no accessory muscle use Abdominal: soft, nontender to palpation, no guarding, no appreciable organomegaly Ext: no gross muscle atrophy, muscle strength muscle strength 5 out of 5 in all 4 extremities, no contractures Neuro: CN II-XII grossly intact Psych: Alert, oriented, appropriate affect Assessment/Plan: Psychotic disorder Bipolar disorder Depression PTSD -Management per psychiatry Questionable history of diabetes -Current A1c is 5.5, no further medications recommended Questionable history of seizure disorder 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 Thank you for allowing us to participate in the care of this pleasant patient. Do not hesitate to contact us with questions. Someone can be reached from the [facility] hospitalist group all hours of the day at [phone] or via [employer]. Past Medical History Past Medical History: Diabetes Mellitus Additional Past Medical History / Comment(s): developmentally delayed 3rd grade level, narcolepsy, right 5th metacarpal fx, epilepsy, insomnia, Teresa Parkinson White Syndrome History of Any Multi-Drug Resistant Organisms: None Reported Additional Past Surgical History / Comment(s): thumb surgery Past Anesthesia/Blood Transfusion Reactions: No Reported Reaction Past Psychological History: Anxiety, Depression, PTSD Additional Psychological History / Comment(s): anger management issues Smoking Status: Current every day smoker, Vaper Past Alcohol Use History: Occasional Additional Past Alcohol Use History / Comment(s): Patient reports only drinking occasionally. Past Drug Use History: Cocaine, Marijuana - Past Family History Mother Additional Family Medical History / Comment(s): Schizophrenia Medications and Allergies Home Medications Medication Instructions Recorded Confirmed Type Aripiprazole Lauroxil [Aristada] 882 mg IM Q42D 10/13/20 10/14/20 History Phentermine HCl [Adipex-P] 37.5 mg PO DAILY 10/13/20 10/14/20 History medroxyPROGESTERone [Depo-Provera] 150 mg IM Q90D 10/13/20 10/14/20 History FLUoxetine HCL [PROzac] 40 mg PO DAILY 30 Days cap 10/16/20 Rx Nicotine 14Mg/24Hr Patch [Habitrol] 1 patch TRANSDERM DAILY 30 Days 10/16/20 Rx patch Allergies Allergy/AdvReac Type Severity Reaction Status Date / Time No Known Allergies Allergy Verified 09/07/23 01:53 Cranial Nerve Examination - Cranial Nerves Cranial Nerve II- Optic: Intact Cranial Nerve III- Oculomotor: Intact Cranial Nerve IV- Trochlear: Intact Cranial Nerve V- Trigeminal: Intact Cranial Nerve - Abducens: Intact Cranial Nerve VII- Facial: Intact Cranial Nerve VIII- Auditory: Intact Cranial Nerve IX- Glossopharyngeal: Intact Cranial Nerve X- Vagus: Intact Cranial Nerve XI- Accessory: Intact Cranial Nerve XII- Hypoglossal: Intact Results CBC & Chem 7: 09/08/23 09:05 09/08/23 09:05 Labs: Abnormal Lab Results - Last 24 Hours (Table) 09/08/23 Range/Units 09:05 Chloride 108 H (98-107) mmol/L Carbon Dioxide 21 L (22-30) mmol/L BUN 20 H (7-17) mg/dL Delta Bilirubin 0.4 H (0.0-0.2) mg/dL HDL Cholesterol 37.80 L (40.00-60.00) mg/dL Thrombosis Risk Factor Assmnt - Choose All That Apply Any of the Below Risk Factors Present?: Yes Each Factor Represents 1 point: Obesity (BMI >25) Other Risk Factors: No Other congenital or acquired thrombophilia - If yes, enter type in comment: No Thrombosis Risk Factor Assessment Total Risk Factor Score: 1 Thrombosis Risk Factor Assessment Level: Low Risk
[2023-09-08] MEDS: PALIPERIDONE 3 MG TAB.ER.24 PO SCH (20:26)
[2023-09-08] MEDS: traZODone HCL 100 MG TAB PO SCH (20:26)
[2023-09-09] MEDS: NICOTINE 14MG/24HR PATCH TRANSDERM SCH (08:14)
[2023-09-09] MEDS: SERTRALINE 50 MG TAB PO SCH (08:14)
[2023-09-09] MEDS: modafiniL 100 MG TAB PO SCH (08:49)
[2023-09-09] MEDS: traZODone HCL 100 MG TAB PO SCH (20:19)
[2023-09-09] MEDS: PALIPERIDONE 3 MG TAB.ER.24 PO SCH (20:19)
[2023-09-09] MEDS: ACETAMINOPHEN TAB 325 MG TAB PO PRN (20:20)
--- NOTE | 2023-09-09 23:01 | P.PN ---
Progress Note - Text Progress Note Date: 09/09/23 Telehealth disclosure: The psychiatrist provided the location as [place], [place], and credentials, stating, "I am licensed as an Adult Psychiatrist in the [facility]." The Zoom meeting was locked after the client's arrival. Client Info Confirmation: I verified their name, , and confirm they are at [facility] psychiatric unit. HIPAA & Limitations: Reviewed and discussed with the client as per level of insight. Patient Confidentiality: Informed the client that the psychiatrist will not record sessions and confirmed privacy. Interval History: The patient was focused on addressing symptoms of tiredness and difficulty concentrating. She reports still feeling tired and sleepy for most of the time and doesn't feel much relief from Modafinil. The patient requested to start on Adderall as it's the only medication that has helped her in the past. She reports currently taking Adderall at home. The patient mentions still experiencing bouts of anger and agitation, especially when triggered by her family. She also reports ongoing depression symptoms. The patient requested to restart the weight management medication Adipex. She reports episodes of increased heart rate in the past and having visited the Emergency Department (ED) due to similar symptoms. The patient was educated that Adipex could potentially cause tachycardia and is not recommended without consulting with a tool and die designer. The patient was hyperverbal and to some degree tangential but redirectable. She indicates that she would like to leave early next week because she has a court date for her son. The patient denies suicidal or homicidal ideation, hallucinations, paranoid ideation, and no delusions could be elicited. She reports still having trouble sleeping but denies appetite problems. She feels stressed but reports that it helps with sleeping. The patient also reports attending groups and other unit activities. She confirms taking her psych medications and denies experiencing any side effects. MENTAL STATUS EXAM: General Appearance: Patient appears to be short hair stated age is alert, Behavior: Patient is cooperative Speech: Patient's speech is fluent and to some degree pressured. Mood/Affect: Patient reports their mood is "depressed", affect is congruent and constricted. Suicidality/Homicidality: Patient denies having any homicidal ideation intent or plan. Denies any suicidal ideation intent or plan Perceptions: Patient does not endorse visual hallucinations and auditory hallucinations Though content/process: There is no evidence of delusional thought content Memory and concentration: AOX3, grossly intact for the purposes of this session. Judgment and insight: mildly improving IMPRESSIONS: Bipolar disorder, current episode depressed with psychotic features PTSD Cannabis use disorder Nicotine dependance PLAN: Continue inpatient psychiatric hospitalization.The patient needs further monitoring and stabilization of her psychiatric symptoms before returning back to the community. Implement the following precautions as recommended by the admitting psychiatrist: elopement and suicide. Consult the medical team immediately if any medical concerns arise. Educate the patient on the benefits of participating in groups and other unit activities and encourage active participation. Lab work ordered:None Medications: Invega 3mg qhs for psychosis/mood stabilization, Zoloft 50mg qd for mood/anxiety, Trazadone 100mg qhs for sleep/anxiety, Modafinil for narcolepsy - Increase dose to 200 mg PO QD Ativan and Haldol PRN for agitation/aggression NRT - nicotine patch Discharge planning is currently in progress.
[2023-09-10] MEDS: NICOTINE 14MG/24HR PATCH TRANSDERM SCH (08:09)
[2023-09-10] MEDS: SERTRALINE 50 MG TAB PO SCH (08:10)
[2023-09-10] MEDS: haloperidoL 5 MG TAB PO PRN (10:05)
[2023-09-10] MEDS: LORazepam 1 MG TAB PO PRN ×2 (10:05→20:25)
--- NOTE | 2023-09-10 19:23 | P.PN ---
Progress Note - Text Progress Note Date: 09/10/23 Interval History: Patient was seen in her room and was directable and agreeable to speak with fiction and nonfiction prose writer at the bedside. Patient reports having been very upset today during visiting hours because she says "this is the third time I been here and have never had a visitor ". Patient voices feelings of abandonment, emptiness, and difficulty connecting with others. However she externalizes blame and states that she is always helping others but not receiving any help in return. She is able to recognize her actions and says that she does not want to be so upset and would like to be more in control of her emotions. She is agreeable with trying Lamictal for mood improvement. Today, she reports that her mood is "angry, depressed". She reports sleeping and eating well. She reported having a lot of pain due to back issues and recent and requested [facility]. Was told would increase dose of Ibuprofen. She denies other concerns. At this time patient denies any suicidal or homicidal ideation, intent or plan. Patient denies any auditory, visual hallucinations and denies any paranoia or delusions. Patient denies any side effects from the medications and has been compliant with meds. MENTAL STATUS EXAM: General Appearance: Patient appears to be heavily tattooed. Short hair stated age is alert, directable, and attempts to cooperate. Multiple bruises on right arm. Patient appears to have poor hygiene and grooming. Behavior: Patient is laying in bed and appears to be much more cooperative today Speech: Patient's speech is fluent and nonpressured. Mood/Affect: Patient reports their mood is "depressed, upset", affect is congruent and constricted. Suicidality/Homicidality: Patient denies having any homicidal ideation intent or plan. Denies any suicidal ideation intent or plan Perceptions: Patient does not endorse visual hallucinations and auditory hallucinations Though content/process: There is no evidence of delusional thought content Memory and concentration: AOX3, grossly intact for the purposes of this session. Judgment and insight: poor, mildly improving IMPRESSIONS: Bipolar disorder, current episode depressed with psychotic features Adjustment disorder with mixed emotional features PTSD Cannabis use disorder Nicotine dependance PLAN: -Patient is admitted under voluntary status to [facility]HU for stabilization of psychiatric symptoms and safety. Patient has signed adult voluntary form and medication consent and is placed in patient's chart. -Medications : Invega 3mg qhs for psychosis, start Lamictal 25 mg daily for mood stabilization Zoloft 50mg qd for mood/anxiety, Trazadone 100mg qhs for sleep/anxiety, Modafinil 200 mg PO QD for narcolepsy -Ativan and Haldol PRN for agitation/aggression -NRT - nicotine patch -SW on board for discharge planning. Encourage patient to participate in groups to work on coping skills. Recommended DBT outpatient
[2023-09-10] MEDS: traZODone HCL 100 MG TAB PO SCH ×2 (20:21→20:26)
[2023-09-10] MEDS: PALIPERIDONE 3 MG TAB.ER.24 PO SCH (20:21)
[2023-09-10] MEDS: IBUPROFEN 800 MG TAB PO PRN (20:25)
[2023-09-11] MEDS: lamoTRIgine 25 MG TAB PO SCH (08:15)
[2023-09-11] MEDS: SERTRALINE 50 MG TAB PO SCH (08:15)
[2023-09-11] MEDS: NICOTINE 14MG/24HR PATCH TRANSDERM SCH (08:51)
[2023-09-11 09:42] VITALS: RESP 16
[2023-09-11] MEDS: IBUPROFEN 800 MG TAB PO PRN ×2 (10:06→19:59)
--- NOTE | 2023-09-11 18:06 | P.PN ---
Progress Note - Text Progress Note Date: 09/11/23 Interval History: Patient was seen in her room. She is irritable on approach and was noted to be sleeping. She states "that medication is not working at clinician [facility] "she says that she would like higher doses of modafinil for narcolepsy but admits that she does not follow up with any outpatient provider for her medical or psychiatric conditions. She reports having significant daytime sedation that she is unable to fight. She says that she has been trying to stay awake by interacting with others and playing games during the daytime but she continues to have significant drowsiness despite sleeping well at night. She states that she has been struggling with finding providers for her insurance. However, she demands to be set up with certain providers. Encouraged her to discuss her insurance concerns with social work tomorrow. Patient states that she would like a higher dose of Lamictal because "it's not working". She says that she is continued to feel "horner and upset ". However, patient displays significant trouble with regulating her emotions and was instructed to work on mindfulness strategies. She was also informed that medications take time to work and cannot be increased rapidly. She denies any rashes or other concerns related to medications. At this time patient denies any suicidal or homicidal ideation, intent or plan. Patient denies any auditory, visual hallucinations and denies any paranoia or delusions. Patient denies any side effects from the medications and has been compliant with meds. MENTAL STATUS EXAM: General Appearance: Patient appears to be heavily tattooed. Short hair stated age is alert, directable, and attempts to cooperate. Multiple bruises on right arm. Patient appears to have poor hygiene and grooming. Behavior: Patient is laying in bed and appears to be much more cooperative today Speech: Patient's speech is fluent and nonpressured. Mood/Affect: Patient reports their mood is "depressed, upset", affect is congruent and constricted. Suicidality/Homicidality: Patient denies having any homicidal ideation intent or plan. Denies any suicidal ideation intent or plan Perceptions: Patient does not endorse visual hallucinations and auditory hallucinations Though content/process: There is no evidence of delusional thought content Memory and concentration: AOX3, grossly intact for the purposes of this session. Judgment and insight: poor, mildly improving IMPRESSIONS: Bipolar disorder, current episode depressed with psychotic features Adjustment disorder with mixed emotional features PTSD Cannabis use disorder Nicotine dependance PLAN: -Patient is admitted under voluntary status to [facility]HU for stabilization of p sychiatric symptoms and safety. Patient has signed adult voluntary form and medication consent and is placed in patient's chart. -Medications : Invega 3mg qhs for psychosis, continue Lamictal 25 mg daily for mood stabilization Zoloft 50mg qd for mood/anxiety, Trazadone 100mg qhs for sleep/anxiety, Increase Modafinil to 300 mg PO QD for narcolepsy -Ativan and Haldol PRN for agitation/aggression -NRT - nicotine patch -SW on board for discharge planning. Encourage patient to participate in groups to work on coping skills. Recommended DBT outpatient
[2023-09-11] MEDS: PALIPERIDONE 3 MG TAB.ER.24 PO SCH (19:57)
[2023-09-11] MEDS: traZODone HCL 100 MG TAB PO SCH (19:57)
[2023-09-11] MEDS: ACETAMINOPHEN TAB 325 MG TAB PO PRN (20:00)
[2023-09-12] MEDS: ACETAMINOPHEN TAB 325 MG TAB PO PRN (00:34)
[2023-09-12] MEDS: LORazepam 1 MG TAB PO PRN ×3 (00:34→20:39)
[2023-09-12] MEDS: modafiniL 100 MG TAB PO SCH (08:07)
[2023-09-12] MEDS: SERTRALINE 50 MG TAB PO SCH (08:07)
[2023-09-12] MEDS: lamoTRIgine 25 MG TAB PO SCH (08:07)
[2023-09-12] MEDS: NICOTINE 14MG/24HR PATCH TRANSDERM SCH ×2 (10:02→10:23)
[2023-09-12 12:40] LABS: Glucose,Whole Blood 85 mg/dL (70-110)
[2023-09-12] MEDS: IBUPROFEN 800 MG TAB PO PRN (18:07)
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
[2023-09-12] MEDS: PALIPERIDONE 3 MG TAB.ER.24 PO SCH (20:35)
[2023-09-12] MEDS: traZODone HCL 100 MG TAB PO SCH (20:35)
[2023-09-13 06:41] VITALS: BP 98/48; PULSE 70; TEMP 97.2
[2023-09-13] MEDS: SERTRALINE 50 MG TAB PO SCH (08:30)
[2023-09-13] MEDS: lamoTRIgine 25 MG TAB PO SCH (08:30)
[2023-09-13] MEDS: modafiniL 100 MG TAB PO SCH (08:31)
[2023-09-13] MEDS: LORazepam 1 MG TAB PO PRN (08:32)
[2023-09-13] MEDS: NICOTINE 14MG/24HR PATCH TRANSDERM SCH (10:23)
[2023-09-13] MEDS ORDERED: medroxyPROGESTERone 150 MG/ML 1ML VIAL IM SCH (13:15)
[2023-09-13] MEDS ORDERED: NON FORMULARY DRUG (Aripiprazole Lauroxil [Aristada] 882 MG/3.2 ML Suser.Syr) IM SCH (13:15)
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
[2023-09-14] MEDS ORDERED: FLUoxetine HCL 20 MG CAP PO SCH (09:00)
[2023-09-14] MEDS ORDERED: PHENTERMINE HCL 37.5 MG PO SCH (09:00)
[2023-09-14] MEDS ORDERED: NICOTINE TRANSDERM SCH (09:00)
--- NOTE | 2023-09-15 03:59 | ED ---
Psych HPI - General Chief Complaint: Psychiatric Symptoms Stated Complaint: [facility] Time Seen by Provider: 09/06/23 21:49 Source: patient, EMS Mode of arrival: EMS - History of Present Illness Initial Comments: This patient is 23-year-old woman who presents very upset that she is facing a CPS investigation. The patient states that she does not know what to do. She has had suicidal thoughts. Patient also requests sexually transmitted infection testing. MD Complaint: suicidal ideation -: hour(s) Associated Psychiatric Symptoms: suicidal ideation Quality: getting worse Improves With: none Worsens With: none Associated Symptoms: other - Related Data Home Medications Medication Instructions Recorded Confirmed Aripiprazole Lauroxil [Aristada] 882 mg IM Q42D 10/13/20 10/14/20 medroxyPROGESTERone [Depo-Provera] 150 mg IM Q90D 10/13/20 10/14/20 Previous Rx's Medication Instructions Recorded FLUoxetine HCL [PROzac] 40 mg PO DAILY 30 Days cap 10/16/20 Nicotine 14Mg/24Hr Patch [Habitrol] 1 patch TRANSDERM DAILY 30 Days 10/16/20 patch Allergies Allergy/AdvReac Type Severity Reaction Status Date / Time No Known Allergies Allergy Verified 09/07/23 01:53 Review of Systems ROS Statement: Those systems with pertinent positive or pertinent negative responses have been documented in the HPI. ROS Other: All systems not noted in ROS Statement are negative. Constitutional: Denies: fever, chills ENT: Denies: throat pain Respiratory: Denies: cough, dyspnea Cardiovascular: Denies: palpitations Gastrointestinal: Denies: abdominal pain, vomiting, diarrhea Genitourinary: Reports: frequency. Denies: dysuria, hematuria Musculoskeletal: Denies: back pain Skin: Denies: rash Neurological: Denies: headache Psychiatric: Reports: anxiety, suicidal thoughts. 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 Past Drug Use History: Cocaine, Marijuana - Past Family History Mother Additional Family Medical History / Comment(s): Schizophrenia General Exam Limitations: no limitations General appearance: alert, in no apparent distress, anxious Head exam: Present: atraumatic, normocephalic Eye exam: Present: normal appearance. Absent: scleral icterus, conjunctival injection Neck exam: Present: normal inspection Respiratory exam: Present: normal lung sounds bilaterally. Absent: respiratory distress, wheezes, rales, rhonchi, stridor Cardiovascular Exam: Present: regular rate, normal rhythm, normal heart sounds. Absent: systolic murmur, diastolic murmur, rubs, gallop GI/Abdominal exam: Present: soft. Absent: distended, tenderness, guarding, rebound, rigid, mass External exam: Present: other (declines exam) Extremities exam: Present: normal inspection, normal capillary refill. Absent: joint swelling, calf tenderness Back exam: Present: normal inspection. Absent: CVA tenderness (R), CVA tenderness (L) Neurological exam: Present: alert Psychiatric exam: Present: agitated, suicidal ideation. Absent: anxious, flat affect, manic, homicidal ideation Skin exam: Present: warm, dry, intact, normal color. Absent: rash Course Vital Signs 09/06/23 09/07/23 21:50 02:29 Temperature 97.9 F Pulse Rate 104 H Pulse Rate [ 99 Left Sitting] Respiratory 20 16 Rate Blood Pressure 135/56 Blood Pressure 110/64 [Left Arm Sitting] O2 Sat by Pulse 97 99 Oximetry Medical Decision Making - Medical Decision Making Was pt. sent in by a medical professional or institution (, PA, DIRECTOR COMMUNITY HEALTH NURSING, urgent care, hospital, or residential...) When possible be specific @ -[No] Did you speak to anyone other than the patient for history (EMS, parent, family, police, friend...)? What history was obtained from this source @ -[No] Did you review nursing and triage notes (agree or disagree)? Why? @ -[I reviewed and agree with nursing and triage notes] Were old charts reviewed (outside hosp., previous admission, EMS record, old EKG, old radiological studies, urgent care reports/EKG's, residential records)? Report findings @ -[No old charts were reviewed] Differential Diagnosis (chest pain, altered mental status, abdominal pain women, abdominal pain men, vaginal bleeding, weakness, fever, dyspnea, syncope, headache, dizziness, GI bleed, back pain, seizure, CVA, palpatations, mental health, musculoskeletal)? @ -Differential Mental Health Depression, anxiety, bipolar, psychosis, schizophrenia, borderline personality, situational depression, adjustment disorder, behavioral disorder, brain tumor, malingering, substance abuse, encephalopathy, medication reaction, dementia, hypothyroidism, degenerative neurologic disorder, lupus.... This is not meant to be all-inclusive list EKG interpreted by me (3pts min.). @ -[ X-rays interpreted by me (1pt min.). @ -[None done] CT interpreted by me (1pt min.). @ -[None done] U/S interpreted by me (1pt. min.). @ -[None done] What testing was considered but not performed or refused? (CT, X-rays, U/S, labs)? Why? @ -[None] What meds were considered but not given or refused? Why? @ -[None] Did you discuss the management of the patient with other professionals (professionals i.e. , PA, DIRECTOR COMMUNITY HE[facility] NURSING, lab, RT, psych nurse, social security benefits interviewer, night worker, teacher, learning and development officer, immigration case worker)? Give summary @ -[Case is discussed with EPS and after staffing case with psychiatrist they will admit for further care Was smoking cessation discussed for >3mins.? @ -[No] Was critical care preformed (if so, how long)? @ -[No] Were there social determinants of health that impacted care today? How? (Homelessness, low income, unemployed, alcoholism, drug addiction, transportation, low edu. Level, literacy, decrease access to med. care, retirement, rehab)? @ -[No] Was there de-escalation of care discussed even if they declined (Discuss DNR or withdrawal of care, Hospice)? DNR status @ -[No] What co-morbidities impacted this encounter? (DM, HTN, Smoking, COPD, CAD, Cancer, CVA, ARF, Chemo, Hep., AIDS, mental health diagnosis, sleep apnea, morbid obesity)? @ -[None] Was patient admitted / discharged? Hospital course, mention meds given and route, prescriptions, significant lab abnormalities, going to OR and other pertinent info. @ -[Admitted for mental health care Undiagnosed new problem with uncertain prognosis? @ -[No] Drug Therapy requiring intensive monitoring for toxicity (Heparin, Nitro, In sulin, Cardizem)? @ -[No] Were any procedures done? @ -[No] Diagnosis/symptom? @ -[Acute anxiety Mood disorder with suicidal ideation Acute, or Chronic, or Acute on Chronic? @ -[Acute Uncomplicated (without systemic symptoms) or Complicated (systemic symptoms)? @ -[UnComplicated Side effects of treatment? @ -[No] Exacerbation, Progression, or Severe Exacerbation? @ -[No] Poses a threat to life or bodily function? How? (Chest pain, [place], [place], pneumonia, PE, COPD, DKA, ARF, appy, cholecystitis, CVA, Diverticulitis, Homicidal, Suicid al, threat to staff... and all critical care pts) @ -[Yes, there is risk of progression to suicide attempt/completion - Lab Data Result diagrams: 09/08/23 09:05 09/08/23 09:05 Lab Results 09/06/23 09/06/23 09/06/23 Range/Units 22:54 22:54 22:54 Urine Color Urine Appearance (Clear) Urine pH (5.0-8.0) Ur Specific [place] (1.001-1.035) Urine Protein (Negative) Urine Glucose (UA) (Negative) Urine Ketones (Negative) Urine Blood (Negative) Urine Nitrite (Negative) Urine Bilirubin (Negative) Urine Urobilinogen (<2.0) mg/dL Ur Leukocyte Esterase (Negative) Urine HCG, Qual Not Detected (Not Detectd) Urine Opiates Screen Not Detected (NotDetected) Ur Oxycodone Screen Not Detected (NotDetected) Urine Methadone Screen Not Detected (NotDetected) Ur Barbiturates Screen Not Detected (NotDetected) U Tricyclic Antidepress Not Detected (NotDetected) Ur Phencyclidine Scrn Not Detected (NotDetected) Ur Amphetamines Screen Not Detected (NotDetected) U Methamphetamines Scrn Not Detected (NotDetected) U Benzodiazepines Scrn Not Detected (NotDetected) Urine Cocaine Screen Not Detected (NotDetected) U Marijuana (THC) Screen Detected H (NotDetected) Chlamydia DNA (PCR) Negative (Negative) N.gonorrhoeae DNA Probe Negative (Negative) SARS-CoV-2 (PCR) (Not Detectd) 09/06/23 09/07/23 Range/Units 23:05 00:16 Urine Color Colorless Urine Appearance Clear (Clear) Urine pH 6.5 (5.0-8.0) Ur Specific [place] 1.014 (1.001-1.035) Urine Protein Negative (Negative) Urine Glucose (UA) Negative (Negative) Urine Ketones Negative (Negative) Urine Blood Negative (Negative) Urine Nitrite Negative (Negative) Urine Bilirubin Negative (Negative) Urine Urobilinogen <2.0 (<2.0) mg/dL Ur Leukocyte Esterase Negative (Negative) Urine HCG, Qual (Not Detectd) Urine Opiates Screen (NotDetected) Ur Oxycodone Screen (NotDetected) Urine Methadone Screen (NotDetected) Ur Barbiturates Screen (NotDetected) U Tricyclic Antidepress (NotDetected) Ur Phencyclidine Scrn (NotDetected) Ur Amphetamines Screen (NotDetected) U Methamphetamines Scrn (NotDetected) U Benzodiazepines Scrn (NotDetected) Urine Cocaine Screen (NotDetected) U Marijuana (THC) Screen (NotDetected) Chlamydia DNA (PCR) (Negative) N.gonorrhoeae DNA Probe (Negative) SARS-CoV-2 (PCR) Not Detected (Not Detectd) Disposition Clinical Impression: Acute anxiety, Suicidal ideation Disposition: ADMITTED IP TO THIS HOSP Condition: Good Is patient prescribed a controlled substance at d/c from ED?: No
== END 2023-09-13 13:35 | disposition home or self-care (01) | DRG 885 ==
LOC: EC 21:44 → 3MHU 09-07 01:43
PROVIDERS: ADMIT Psychiatry & Neurology Psychiatry; ATTEND Psychiatry & Neurology Psychiatry
DX: F31.5 Bipolar disorder, current episode depressed, severe, with psychotic features (principal); R45.851 Suicidal ideations; F41.0 Panic disorder [episodic paroxysmal anxiety]; F43.10 Post-traumatic stress disorder, unspecified; F43.23 Adjustment disorder with mixed anxiety and depressed mood; G47.00 Insomnia, unspecified; G40.909 Epilepsy, unspecified, not intractable, without status epilepticus; F81.9 Developmental disorder of scholastic skills, unspecified; I45.6 Pre-excitation syndrome; R45.4 Irritability and anger; F17.290 Nicotine dependence, other tobacco product, uncomplicated; F12.10 Cannabis abuse, uncomplicated; E66.9 Obesity, unspecified; Z68.31 Body mass index [BMI] 31.0-31.9, adult; Z11.52 Encounter for screening for COVID-19; Z28.310 Unvaccinated for COVID-19; Z79.899 Other long term (current) drug therapy; Z91.51 Personal history of suicidal behavior; Z63.0 Problems in relationship with spouse or partner; Z65.3 Problems related to other legal circumstances; Z86.39 Personal history of other endocrine, nutritional and metabolic disease
CPT/HCPCS: 80053; 80061; 80306; 81003; 81025; 82248; 83036; 84443; 85025; 87491; 87591; 87635; 99285